=== PATIENT | female | born 1955 | race Caucasian/White ===

== ENCOUNTER → 2016-08-29 | Day surgery (SDC) | payer BC ==
[~2016-08-29] MED LIST: Buffered Lidocaine 1% SYR 3ML* 3 ML/SYR SYRINGE INTRADERM ONE; Buffered Lidocaine 1% SYR 3ML* 3 ML/SYR SYRINGE ONE; Cisatracurium* 2 MG/ML MDV 10 ML ONE; Dexamethasone IV* 4 MG/ML 1 ML (4 MG) ONE; Famotidine IV* 10 MG/ML 2 ML (20 mg) IV ONE; Famotidine IV* 10 MG/ML 2 ML (20 mg) ONE; KETAMINE HCL* 50 MG/ML 10 ML VIAL ONE; Levalbuterol 0.63MG/3ML NEB INH ONE; Levalbuterol 0.63MG/3ML NEB INH PRN; Levalbuterol 1.25MG/0.5ML NEB ONE; Lidocaine 2% MPF* 2 ML VIAL ONE; Metoclopramide TAB* 10 MG ONE; Metoclopramide TAB* 10 MG PO ONE; Midazolam* 1 MG/ML 5 ML VIAL (5 MG) ONE; Ondansetron INJ* 2 MG/ML VIAL IV PRN; Ondansetron INJ* 2 MG/ML VIAL ONE; Propofol* 10 MG/ML 20 ML BTL IV PUSH ONE; fentaNYL* 50 MCG/ML 2 ML VIAL (100 MCG VIAL) IV PRN; fentaNYL* 50 MCG/ML 2 ML VIAL (100 MCG VIAL) ONE; oxyCODONE/Acetamin 5/325 MG* TAB PO PRN
[2016-08-29 15:51] VITALS: BP 117/68
--- NOTE | 2016-08-30 11:02 | PRO ---
BRONCHOSCOPY REPORT: DATE OF PROCEDURE: 08/29/16 PROCEDURE PERFORMED: Bronchoscopy with endobronchial ultrasound guided fine- needle aspiration of mediastinal nodes. PREPROCEDURAL DIAGNOSES: Mediastinal and hilar adenopathy, lung mass. ANESTHESIA: General anesthesia. ANESTHESIOLOGIST: Dr. Pritchett. Refer to anesthesiologist's notes for further details. DESCRIPTION OF PROCEDURE: Informed consent was obtained from the patient prior to the procedure after all the risks and benefits were thoroughly explained. The patient was intubated with size 8.0 ET tube prior to the procedure. Flexible Pentax bronchoscope was used for airway inspection. ET tube positioning was confirmed to be 2 cm above the level of nica. Bronchoscope was then advanced into the left bronchial tree which was then inspected. All airways appeared patent. No endobronchial lesions were noted. Bronchoscope was then advanced into the right bronchial tree. There was evidence of extrinsic compression of right main stem bronchus at the level of origin. Bronchoscope, however, could be advanced through the narrowed right main stem bronchus. Airways appeared patent beyond obstruction in the first part of right main stem bronchus up until the take off of right upper lobe bronchus. Mucosa appeared inflamed and erythematous. No bleeding was noted. No significant secretions were noted. Bronchoscope was withdrawn and EBUS bronchoscope was inserted through the ET tube. Station R4 lymph node was sampled with 4 passes. Rapid on-site evaluation revealed adequate lymphatic tissue with evidence of malignant cells. Specimen was placed in CytoLyt for cell block. Station R10 lymph node was then accessed with 3 passes. Rapid on- site evaluation revealed similar findings with adequate lymphatic tissue and malignant cells. Station L4 lymph node was mildly enlarged and was sampled with 3 passes. Lymphatic tissue was noted on the passes. Rest of the specimen was placed in CytoLyt. The patient was extubated and was seen in Recovery in optimal condition. The patient tolerated the procedure well. No complications occurred during or after the procedure. The patient was discharged home in stable condition. [id number]/[facility] #: [id number] [facility]
== END | disposition home or self-care (01) ==
LOC: OR 11:59
PROVIDERS: ATTEND Internal Medicine
DX: C77.1 Secondary and unspecified malignant neoplasm of intrathoracic lymph nodes (principal); R91.8 Other nonspecific abnormal finding of lung field; F17.210 Nicotine dependence, cigarettes, uncomplicated; J98.4 Other disorders of lung; M06.9 Rheumatoid arthritis, unspecified; D64.9 Anemia, unspecified
CPT/HCPCS: 88172; 88173; 88184; 88185; 88188; 88305; 88341; 88342; A9270-GY; J1100; J2250; J2405; J2704; J3010

== ENCOUNTER → 2016-09-08 06:29 | Day surgery (SDC) | payer BC ==
[~2016-09-08 06:29] MED LIST changes: -Buffered Lidocaine 1% SYR 3ML* 3 ML/SYR SYRINGE INTRADERM ONE; -Buffered Lidocaine 1% SYR 3ML* 3 ML/SYR SYRINGE ONE; -Cisatracurium* 2 MG/ML MDV 10 ML ONE; -Dexamethasone IV* 4 MG/ML 1 ML (4 MG) ONE; -Famotidine IV* 10 MG/ML 2 ML (20 mg) IV ONE; -Famotidine IV* 10 MG/ML 2 ML (20 mg) ONE; -KETAMINE HCL* 50 MG/ML 10 ML VIAL ONE; -Levalbuterol 0.63MG/3ML NEB INH ONE; -Levalbuterol 0.63MG/3ML NEB INH PRN; -Levalbuterol 1.25MG/0.5ML NEB ONE; +Lidocaine 1% INJ* 10 MG/ML 30 ML SDV ONE; -Lidocaine 2% MPF* 2 ML VIAL ONE; -Metoclopramide TAB* 10 MG ONE; -Metoclopramide TAB* 10 MG PO ONE; -Midazolam* 1 MG/ML 5 ML VIAL (5 MG) ONE; -Ondansetron INJ* 2 MG/ML VIAL IV PRN; -Ondansetron INJ* 2 MG/ML VIAL ONE; -Propofol* 10 MG/ML 20 ML BTL IV PUSH ONE; +Saline, Bacteriostatic* 30 ML VIAL ONE; -fentaNYL* 50 MCG/ML 2 ML VIAL (100 MCG VIAL) IV PRN; -fentaNYL* 50 MCG/ML 2 ML VIAL (100 MCG VIAL) ONE; -oxyCODONE/Acetamin 5/325 MG* TAB PO PRN
[2016-09-08 07:17] VITALS: BP 116/73
--- NOTE | 2016-09-08 08:40 | RAD ---
CPT II Codes: 6045F INDICATION: PowerPort insertion. Fluoroscopic services provided for referring physician. 11.2 seconds of fluoroscopy time was used. 2 spot images demonstrates placement of a PowerPort into the superior vena cava. IMPRESSION: Fluoroscopic services provided for referring physician.
--- NOTE | 2016-09-08 08:54 | RAD ---
INDICATION: Central venous catheter placement. COMPARISON: Comparison is made with a prior CT of the chest from August 22, 2016 and a prior chest x-ray study from August 21, 2016. TECHNIQUE: A portable view of the chest was obtained. FINDINGS: The heart is within normal limits in size. There is increased density in the right paratracheal region which correlates with adenopathy on the prior CT study. There is apical pleural thickening which is new from the prior study. The left lung appears clear. There is volume loss in the right lung and increased density present at the right lung apex which may represent atelectasis or collapse of the right upper lobe. No pneumothorax is seen. There is a power port central venous catheter present on the right side. The catheter demonstrates normal course. The catheter tip projecting over the right atrium. IMPRESSION: 1. STATUS POST CENTRAL VENOUS CATHETER PLACEMENT. 2. INCREASED DENSITY IN RIGHT PERITRACHEAL REGION SOME OF WHICH IS SECONDARY TO ADENOPATHY ALTHOUGH THIS HAS PROGRESSED FROM THE PRIOR EXAM AND SOME OF THE DENSITY MAY BE SECONDARY TO RIGHT UPPER LOBE ATELECTASIS OR COLLAPSE. RECOMMEND CONTINUED FOLLOW-UP.
--- NOTE | 2016-09-08 09:40 | OP ---
AMENDED REPORT TO CORRECT ACCOUNT NUMBER - ESIGNED BEFORE ADJUSTMENT DATE OF OPERATION: 09/08/16 - SDS DATE OF : 55 SURGEON: Cody Tapia MD [employer] OPERATOR: None. ANESTHESIOLOGIST: None. PRE-OP DIAGNOSIS: Carcinoma of the lung. POST-OP DIAGNOSIS: Carcinoma of the lung. OPERATIVE PROCEDURE: Placement of right subclavian 8-[place]ian port. DESCRIPTION OF PROCEDURE: The patient was supine one the fluoroscopy table. The right chest and neck were prepped with antiseptic and draped in a sterile fashion. Local infiltrative anesthesia was administered. An approximately 3 cm incision was created. Inferior pocket was created. Subclavian venipuncture was carried out and guidewire was passed under fluoroscopic guidance. Catheter was passed through the peel-away introducer, measured and cut at 22 cm, attached to the port, which was sutured in the pocket with 3-0 Prolene. The pocket was then closed with 3-0 and 5-0 Polysorb followed by Steri-Strips. The port was accessed with good blood return. It was flushed with saline solution and heparinized solution. There were no complications. Tegaderm was placed. She was brought to recovery in good condition. Minimal blood loss. Sponge and instrument count correct. CC: Cody Tapia MD; Linh Mcdonough; Haley Duke MD * [id number]/[facility] #: [id number] MTDD
== END | disposition home or self-care (01) ==
LOC: OR 06:29
PROVIDERS: ATTEND Surgery
DX: C34.11 Malignant neoplasm of upper lobe, right bronchus or lung (principal); M06.9 Rheumatoid arthritis, unspecified; Z87.891 Personal history of nicotine dependence
CPT/HCPCS: 71010; C1788; J1642